=== PATIENT | female | born 1990 | race Native Hawaiian/Other Pacific Islander ===

== ENCOUNTER 2023-05-15 14:00 | Outpatient (CLI) | payer MEDICAID, SELFPAY ==
[2023-05-15] VITALS (22 sets, daily range): BP systolic 111–146; BP diastolic 64–96; PULSE 73–102; O2SAT 97–100
[2023-05-15 14:46] LABS: Hematocrit 31.8 % (33.0-51.0); Hemoglobin* 10.1 gm/dL (12.0-16.0); Mean Corpuscular HGB Conc 32 gm/dL (32-36); Mean Corpuscular Hemoglobin 26 pg (26-34); Mean Corpuscular Volume 81 fL (80-100); Platelet Count* 186 K/uL (140-440); Red Blood Count 3.95 m/uL (4.00-5.20); White Blood Count* 6.28 K/uL (4.50-11.00)
[2023-05-15 14:51] LABS: Slide Review Reflex No
[2023-05-15 15:03] LABS: Alanine Aminotransferase* 15 U/L (4-35); Aspartate Amino Transferase* 25 U/L (12-35); Blood Urea Nitrogen* 11 mg/dL (5-24); Creatinine* 0.6 mg/dL (0.5-1.5); Estimated Glomerular Filt Rate 122 ml/min
[2023-05-15 16:00] LABS: Total Protein Urine 11 mg/dL
[2023-05-15 16:01] LABS: Creatinine Urine 122.3 mg/dL
--- NOTE | 2023-05-15 16:50 | PC.OBNST ---
NST Note NST Note Start: 05/15/23 14:16 Freq: ONCE Status: Active Protocol: Document 05/15/23 16:47 [facility] (Rec: 05/15/23 16:49 [facility] [id number]) NST Note 3 Para (# of births) 2 EDC 05/26/23 Gestational Age In Weeks & Days 38 Weeks & 3 Days High Risk Factors Diabetes - Gestational Diet Controlled,History of Labor/Delivery Patient Presented with Complaint(s) of Other Other Complaints Sent from clinic to monitor blood pressure and obtain labs to rule out pre eclampsia Reactive Yes Appropriate for Gestational Age Yes NIA Real RN Date 05/15/23 Reactive Yes Appropriate for Gestational Age Yes NIA Abdi RN Date 05/15/23 OB NST charge Yes Complete NST Note via Write Note Yes The provider's electronic signature indicates the NST is reactive/appropriate for gestational age. *Note to provider: If an addendum is required, open the patient's chart and click on the note under the Nurse/Allied Health tab.
== END 2023-05-15 16:51 | disposition home or self-care (01) ==
LOC: OB OUT 14:12 → OB 14:13
PROVIDERS: PCP Family Medicine; Visit Provider Family Medicine
DX: O24.419 Gestational diabetes mellitus in pregnancy, unspecified control (principal); Z3A.38 38 weeks gestation of pregnancy
CPT/HCPCS: 36415; 59025; 82565; 82570; 84156; 84450; 84460; 84520; 85027; 99213

== ENCOUNTER 2023-05-23 16:13 | Inpatient (IN) | payer MEDICAID, SELFPAY ==
[2023-05-23] VITALS (13 sets, daily range): BP systolic 105–152; BP diastolic 57–83; PULSE 93–132; RESP 17–18; TEMP 36.6–37.1; O2SAT 99–100; BMI 41.9
[2023-05-23] MEDS: ACETAMINOPHEN 500 MG TABLET 1000 MG PO (17:40)
[2023-05-23 17:48] LABS: PCR FLU A Negative PCR FLU A (Negative); PCR FLU B Negative PCR FLU B (Negative); PCR RSV Negative PCR RSV (Negative); SARS PCR* POSITIVE SARS-CoV-2 (Negative)
[2023-05-23 18:42] LABS: Amnisure Rom* Negative
--- NOTE | 2023-05-23 18:42 | P.OBHP_ITS ---
OB - H&P: HPI Labor/Induction History of Present Illness Date Seen: 05/23/23 Chief Complaint: The patient is a 33 year old 3 para 0202 at 39+4 weeks gestation by 1st trimester US, who presents for IOL for gestational diabetes. Chief complaint: Maternity : 2 Para: 2 Indications for induction: other (gestational diabetes) Narrative: Gene Cox is a 33 year old at 39+4 weeks by 1st trimester US presenting for IOL for diet controlled GDM. Patient unfortunately developed URI symptoms yesterday after a where many people have now tested positive for covid. [place] screening for covid on admit is also positive. She is feeling congested, mild headache and body aches with occasional cough. she is feeling occasional contractions. No leaking fluid. baby has been active. is notable for +GBS. Due to social stressors, she had a late diagnosis of GDM and was unable to attend GDM education. She has been checking home glucose levels which have been well managed with diet alone. She has had reassuring weekly BPPs and last EFW at 35 weeks was 2593g. Her prior 2 pregnancies were complicated by preeclampsia. She has intermittently had high BP readings in clinic, but labs reassuring and has been on 81 mg asa throughout her . History of Present Dating criteria: based on 1st trimester US only care: limited care (missed 2 months of care due to moving out of the area) Ultrasounds: normal 1st trimester US and normal mid trimester US complications: gestational diabetes (diet controlled) Medical complications: none Labs Blood type: A (+) positive Rubella: immune RPR/VDLR: nonreactive GBS status: positive HBsAG: negative Review of Systems Status of ROS: Reports: 6 or more systems reviewed and unremarkable except as noted in History and below Meds Home Medications and Allergies Allergies Allergy/AdvReac Type Severity Reaction Status Date / Time No Known Drug Allergies Allergy Verified 05/15/23 14:32 OB - H&P: Exam Physical Exam: Vital signs: Temp Pulse Resp BP Pulse Ox 98.4 F 121 H 17 139/77 99 05/23/23 16:52 05/23/23 16:52 05/23/23 16:52 05/23/23 16:52 05/23/23 18:22 Constitutional: Constitutional: no acute distress Routine HEENT Exam: Head: Present atraumatic and normocephalic Eye: Present EOMI and PERRL ENT: Present mucous membranes moist Comments: sinus congestion Routine Neck Exam: Neck: Present full ROM Routine Respiratory Exam: Respiratory: Present CTA bilaterally Routine Cardiovascular Exam: Cardiovascular: tachycardia (regular rhythm ) Routine Exam: Perineum Description: Normal Detailed Labor and Delivery Exam: Patient Gravid: Yes Dilation (cm): 3 Effacement (%): 40 Cervix position: posterior Consistency: soft Cervical ripeness score: 5 Fetus (Single): Station: -4 Amniotic Membrane Status: intact Heart Rate Baseline: 150 Monitor Accelerations: Present Monitor Decelerations: None Employee Operations Examiner Variability: Moderate (6-25) Routine Skin Exam: Present intact and normal turgor Routine Neurological Exam: Present alert, oriented X3 and CN II-XII intact OB - Problem Based A/P Additional Plan (1) Term : Status: Acute (2) Group B Streptococcus carrier state affecting : Status: Acute (3) Gestational diabetes: Status: Acute (4) COVID-19 virus infection: Status: Acute Plan Ampicillin once in active labor. Covid 19 precautions GDM management per protocol. Delivery/Labor/Induction Plan Plan: induction Induction method: per pitocin protocol
[2023-05-23 19:37] LABS: Hematocrit 30.5 % (33.0-51.0); Hemoglobin* 9.8 gm/dL (12.0-16.0); Mean Corpuscular HGB Conc 32 gm/dL (32-36); Mean Corpuscular Hemoglobin 25 pg (26-34); Mean Corpuscular Volume 78 fL (80-100); Platelet Count* 162 K/uL (140-440); RDW Coefficient of Variation % 15.3 % (11.5-15.5); Red Blood Count 3.89 m/uL (4.00-5.20); White Blood Count* 6.52 K/uL (4.50-11.00)
[2023-05-23 19:38] LABS: Slide Review Reflex No
[2023-05-23] MEDS: AMPICILLIN 2 GM in 0.9 % SODIUM CHLORIDE Mini-bag 100 ML IVPB (19:53)
[2023-05-23] MEDS: LACTATED RINGERS 1000 ML 1,000 ML 124 ML IV (19:54)
[2023-05-23] MEDS: OXYTOCIN 30 unit/500 ML in NS 30 UNIT/500 ML BAG IVPB (19:54)
[2023-05-23] MEDS: AMPICILLIN 1 GM in 0.9 % SODIUM CHLORIDE Mini-bag 100 ML IVPB (23:51)
[2023-05-24] VITALS (125 sets, daily range): BP systolic 68–179; BP diastolic 32–102; PULSE 82–129; RESP 14–18; TEMP 36.4–37.8; O2SAT 84–99
[2023-05-24] MEDS: LABETALOL HCL 5 MG/ML inj IVP (02:13)
[2023-05-24] MEDS: MAGNESIUM IV 4 GM/100 ML PIGGYBACK IVPB (02:29)
--- NOTE | 2023-05-24 02:54 | PM.OBPNL ---
Subjective Date Seen: 05/24/23 Narrative: Patient has developed severe range blood pressures, IV labetalol and loading dose magnesium started. She is on pitocin per protocol, and is feeling some contractions. Cervical exam done by RN due to feeling rectal pressure, she is 4 cm with bulging bag, but no presenting part felt. Bedside US confirms vertex presentation. Objective Vital Signs: Last Vital Signs Temp 98.2 F 05/24/23 01:56 Pulse 101 H 05/24/23 02:50 Resp 18 05/24/23 01:56 BP 154/88 H 05/24/23 02:50 Pulse Ox 99 05/23/23 18:22 Pelvic Exam Dilation (cm): 4 Effacement (%): 50 Station: -4 Contractions Monitor mode: External Contraction pattern: Regular Contraction intensity: Moderate Pitocin Rate (mU/min): 10 Assessment Assessment: induction ongoing Station: -4 Status: Category l Heart Rate Baseline: 150 Hearing Therapy Teacher Variability: Moderate (6-25) Monitor Accelerations: Present Monitor Decelerations: None Plan Plan: Continue pitocin per protocol. Ampicillin for +GBS Blood sugar monitoring per protocol. Magnesium for severe range BPs, labs pending and Labetalol to maintain normal BPs.
[2023-05-24] MEDS: AMPICILLIN 1 GM in 0.9 % SODIUM CHLORIDE Mini-bag 100 ML IVPB ×4 (03:45→16:09)
[2023-05-24 04:06] LABS: Creatinine Urine 53.1 mg/dL
[2023-05-24 04:07] LABS: Total Protein Urine 18 mg/dL
[2023-05-24 04:09] LABS: Hematocrit 33.4 % (33.0-51.0); Hemoglobin* 10.5 gm/dL (12.0-16.0); Mean Corpuscular HGB Conc 31 gm/dL (32-36); Mean Corpuscular Hemoglobin 25 pg (26-34); Mean Corpuscular Volume 81 fL (80-100); Platelet Count* 195 K/uL (140-440); Red Blood Count 4.14 m/uL (4.00-5.20)
[2023-05-24 04:21] LABS: Slide Review Reflex No
[2023-05-24 04:33] LABS: Alanine Aminotransferase* 15 U/L (4-35); Aspartate Amino Transferase* 31 U/L (12-35); Blood Urea Nitrogen* 8 mg/dL (5-24); Creatinine* 0.6 mg/dL (0.5-1.5); Est. Creatinine Clearance* 96.69; Estimated Glomerular Filt Rate 122 ml/min
[2023-05-24] MEDS: ACETAMINOPHEN 500 MG TABLET 1000 MG PO ×2 (05:39→17:26)
--- NOTE | 2023-05-24 05:42 | PM.OBPNL ---
Subjective Date Seen: 05/24/23 Narrative: Austen is a at 39+5 here for IOL for diet controlled GDM. She unfortunately has developed preeclampsia with severe range blood pressures. These are well managed with labetalol. She is on magnesium. She also has covid. the congestion and body aches are more uncomfortable than contractions. Discussed AROM as a way to augment labor, AROM completed with return of clear fluid. Objective Vital Signs: Last Vital Signs Temp 100.0 F H 05/24/23 05:39 Pulse 112 H 05/24/23 05:01 Resp 18 05/24/23 05:39 BP 124/73 05/24/23 05:01 Pulse Ox 99 05/23/23 18:22 Pelvic Exam Dilation (cm): 5 Effacement (%): 70 Station: -3 Contractions Monitor mode: External Contraction Frequency: 4-5 Contraction pattern: Regular Contraction intensity: Moderate Pitocin Rate (mU/min): 14 Assessment Assessment: induction ongoing Station: -3 Amniotic Membrane Status: AROM Status: Category l Heart Rate Baseline: 150 Wool Hat Finisher Variability: Moderate (6-25) Monitor Accelerations: Present Monitor Decelerations: None Plan Plan: Continue pitocin, now with AROM for augmentation. Continue blood sugar monitoring per protocol. Magnesium for preeclampsia with severe features. Serial labs. Labetalol prn for BP management. Ampicillin for +GBS. Epidural per patient request. Anticipate .
[2023-05-24] MEDS: LACTATED RINGERS 1000 ML 1,000 ML 500 ML IV (07:08)
[2023-05-24] MEDS: LIDOCAINE 2% (PF) 5 ML VIAL EPIDURAL (07:28)
[2023-05-24] MEDS: ROPIVACAINE 0.2% 100 ml 100 ML 10 MG EPIDURAL ×2 (07:38→14:24)
--- NOTE | 2023-05-24 07:41 | PM.ANBPRC ---
[facility] Medical History (Updated 05/24/23 @ 05:48 by Debora Buckley MD) Preeclampsia ?O14.90 - Unspecified pre-eclampsia, unspecified trimester (ICD-10) Nephrolithiasis ?N20.0 - Calculus of kidney (ICD-10) Surgical History (Updated 05/23/23 @ 19:02 by Debora Buckley MD) S/P ureteral stent placement ?Z96.0 - Presence of urogenital implants (ICD-10) Family History (Updated 05/23/23 @ 19:02 by Debora Buckley MD) Maternal Grandmother Diabetes Social History What is your current living situation?: I presently have a place to live Problems where you live: no known problems In the past 12 months, utilities in danger of being shut off: no In past 12 months, lack of transportation kept you from medical appts, meetings, work, or getting things needed for daily living: no In the past 12 mos, have been you worried that your food would run out before you had money to buy more?: never true In the past 12 mos, the food you bought just didn't last and you didn't have money to buy more?: never true Smoking Status: Never smoker How often does anyone, including family, friends and others, physically hurt you: never How often does anyone, including family, friends and others, insult or talk down to you: never How often does anyone, including family, friends and others, threaten you with harm: never How often does anyone, including family, friends and others, scream or curse at you: never Meds Home Medications and Allergies Allergies Allergy/AdvReac Type Severity Reaction Status Date / Time No Known Drug Allergies Allergy Verified 05/23/23 22:18 Results Labs Labs: Laboratory Results - last 24 hr 05/23/23 05/23/23 05/23/23 16:53 18:27 19:30 WBC 6.52 RBC 3.89 L Hgb 9.8 L Hct 30.5 L MCV 78 L MCH 25 L MCHC 32 RDW Coeff of Uriah 15.3 Plt Count 162 Neut % (Auto) Not Reportable Lymph % (Auto) Not Reportable [facility] % (Auto) Not Reportable Eos % (Auto) Not Reportable Baso % (Auto) Not Reportable Neut # (Auto) Not Reportable Lymph # (Auto) Not Reportable [facility] # (Auto) Not Reportable Eos # (Auto) Not Reportable Baso # (Auto) Not Reportable BUN Creatinine Estimated Creat Clear Estimated GFR AST ALT Urine Creatinine Protein/Creatinin Ratio Urine Total Protein Membrane Rupture Negative SARS-CoV-2 (PCR) POSITIVE SARS-CoV-2 A Influenza Type A (PCR) Negative PCR FLU A Influenza Type B (PCR) Negative PCR FLU B RSV (PCR) Negative PCR RSV Blood Type A Positive Antibody Screen NEGATIVE 05/24/23 03:00 WBC 6.70 RBC 4.14 Hgb 10.5 L Hct 33.4 MCV 81 MCH 25 L MCHC 31 L RDW Coeff of Uriah Plt Count 195 Neut % (Auto) Lymph % (Auto) [facility] % (Auto) Eos % (Auto) Baso % (Auto) Neut # (Auto) Lymph # (Auto) [facility] # (Auto) Eos # (Auto) Baso # (Auto) BUN 8 Creatinine 0.6 Estimated Creat Clear 96.69 Estimated GFR 122 AST 31 ALT 15 Urine Creatinine 53.1 Protein/Creatinin Ratio 0.30 H Urine Total Protein 18 Membrane Rupture SARS-CoV-2 (PCR) Influenza Type A (PCR) Influenza Type B (PCR) RSV (PCR) Blood Type Antibody Screen Vital Signs Vital Signs: Last Vital Signs Temp 99.1 F 05/24/23 06:00 Pulse 107 H 05/24/23 07:40 Resp 18 05/24/23 06:00 BP 110/57 L 05/24/23 07:40 Pulse Ox 98 05/24/23 07:40 Weight: 97.324 kg Height: 152.4 cm Anesthesia Procedures Epidural Insertion Patient Location: OB Start Time: 07:00 Stop Time: 07:45 Start Date: 05/24/23 Stop Date: 05/24/23 Reason for Block: primary anesthetic Patient Position: sitting Performed By: Helio Alcala Preanesthetic Checklist: IV checked, risks and benefits discussed, surgical consent, monitors and equipment checked, pre-op evaluation, timeout performed and anesthesia consent Prep: chlorhexidine gluconate Monitoring: blood pressure monitoring, correction officer head, continuous pulse oximetry and heart rate Approach: midline Vertebral Space: lumbar (1-5) Needle Type: Tuohy needle Injection Technique: continuous catheter (catheter) Needle gauge: 17 Needle Length (cm): 10 cm Needle Insertion Depth (cm): 5 Catheter Gauge: 19 Catheter Type: multi-orifice Catheter at skin depth (cm): 10 Test Dose Result: negative and lidocaine 1.5% with epinephrine 1 to 200,000
[2023-05-24] MEDS: PHENYLEPHRINE 100 MCG/ML SYRINGE IVP ×6 (07:59→09:03)
[2023-05-24] MEDS: ePHEDrine sulfate 5 MG/ML inj 10 MG IVP (08:31)
[2023-05-24 08:46] LABS: Hematocrit 30.7 % (33.0-51.0); Hemoglobin* 9.4 gm/dL (12.0-16.0); Mean Corpuscular HGB Conc 31 gm/dL (32-36); Mean Corpuscular Hemoglobin 25 pg (26-34); Mean Corpuscular Volume 81 fL (80-100); Platelet Count* 182 K/uL (140-440); Red Blood Count 3.77 m/uL (4.00-5.20); White Blood Count* 6.35 K/uL (4.50-11.00)
[2023-05-24 08:52] LABS: Slide Review Reflex No
[2023-05-24 08:56] LABS: Alanine Aminotransferase* 15 U/L (4-35); Aspartate Amino Transferase* 28 U/L (12-35); Blood Urea Nitrogen* 8 mg/dL (5-24); Creatinine* 0.7 mg/dL (0.5-1.5); Est. Creatinine Clearance* 82.88; Estimated Glomerular Filt Rate 118 ml/min
[2023-05-24] MEDS: 5 % DEXTROSE/0.9% SOD CHLORIDE 1,000 ML 125 ML IV (13:07)
[2023-05-24] MEDS: ONDANSETRON 2 MG/ML inj 4 MG IV (14:18)
--- NOTE | 2023-05-24 14:53 | P.OBPN_ITS ---
Subjective Date Seen: 05/24/23 Narrative: Austen is a 33 yo at 39+5 here for IOl for gestational diabetes, now with severe preeclampsia, on magnesium. She has been making slow cervical change throughout the day. She is intermittently feeling contractions and is feeling vaginal/perineal pain with cervical checks and can feel the catheter. Objective Vital Signs: Last Vital Signs Temp 97.8 F 05/24/23 14:28 Pulse 95 05/24/23 14:26 Resp 16 05/24/23 14:28 BP 111/55 L 05/24/23 14:26 Pulse Ox 98 05/24/23 08:05 Pelvic Exam Dilation (cm): 8 Effacement (%): 90 Station: -2 Contractions Monitor mode: External Contraction pattern: Regular Contraction intensity: Moderate Pitocin Rate (mU/min): 23 Assessment Assessment: active labor and induction ongoing Station: -3 Amniotic Membrane Status: AROM Status: Category ll Heart Rate Baseline: 150 Retirement Variability: Moderate (6-25) Monitor Accelerations: Present Monitor Decelerations: Variable Plan Plan: Continue glucose management per protocol. On Magnesium for severe preeclampsia. BP management with labetalol, although has not needed treatment since epidural. Serial labs per protocol. Ampicillin for +GBS Contact precautions for covid.
[2023-05-24 15:00] LABS: Hematocrit 30.5 % (33.0-51.0); Hemoglobin* 9.5 gm/dL (12.0-16.0); Mean Corpuscular HGB Conc 31 gm/dL (32-36); Mean Corpuscular Hemoglobin 25 pg (26-34); Mean Corpuscular Volume 82 fL (80-100); Platelet Count* 181 K/uL (140-440); Red Blood Count 3.74 m/uL (4.00-5.20); White Blood Count* 6.66 K/uL (4.50-11.00)
[2023-05-24 15:11] LABS: Alanine Aminotransferase* 16 U/L (4-35); Aspartate Amino Transferase* 28 U/L (12-35); Blood Urea Nitrogen* 8 mg/dL (5-24); Creatinine* 0.7 mg/dL (0.5-1.5); Est. Creatinine Clearance* 82.88; Estimated Glomerular Filt Rate 118 ml/min
[2023-05-24 15:25] LABS: Slide Review Reflex No
[2023-05-24] MEDS: TRANEXAMIC ACID 100 MG/ML INJ 1000 MG IV (17:44)
--- NOTE | 2023-05-24 18:09 | W.PM.VAGD1_ITS ---
Procedure Delivery date: 05/24/23 Procedure Done: Global Events: GDMA1, Pre-Eclampsia, Meconium Stained Fluid and Covid Infection in Intrapartal Events: Labor Induction Delivery augmentation: rupture of membranes Delivery monitor: external FHT Route of delivery: Episiotomy description: None Laceration description: None Estimated blood loss (mL): 50 Anesthesia type: Epidural Disposition: floor Narrative: The patient is a 33 year-old G [id number] admitted on 05/23/2023 at 39 Weeks, 4 Days gestation for IOL for diet controlled GDM. She unfortunately tested positive for covid at the time of admission with symptoms starting 05/22..? Cervical exam on admission was 4 cm/40 % effaced/-4 station with membranes intact in vertex presentation.? Contractions were occasional.? heart rate demonstrated baseline 150 bpm with moderate variability, + accelerations, - decelerations; a category 1 tracing.? AROM occurred at 05/24/2023 0534 with clear fluid. however, with subsequent checks, fluid was noted to be meconium stained. Additionally, mom developed preeclampsia with severe range blood pressures and was started on magnesium ? Labor Analgesia:? Epidural ? Pitocin:? yes ? Labor onset:? 05/24/23 0530 ? Complete:? 1609 ? Pushing:? 1621 ? heart tones during second stage were category 2. ? At 1740 a viable male infant delivered in vertex OA presentation over intact perineum via spontaneous vaginal delivery.?Infant had a nuchal cord, reduced at perineum. This was followed by a 20 second shoulder dystochia. was placed on maternal abdomen.? Cord was clamped and cut after a 10-15 second delay.? Nose and mouth were bulb suctioned.? Infant weight 8 lbs 13 oz.? 2 at 1 minute and 7 at 5 minutes and 8 at 10 minutes.? Shoulder dystocia: yes.? Nuchal cord: yes x1. ? Placenta delivered spontaneously and complete at 1745 with a 3 vessel cord. ? Mother and were stable after delivery. ? Lacerations:? none. ? Blood loss: 50 mL. Blood loss measurement type: QBL ? Sponge and needles counts are correct. [place] Infant Gender: Male presentation: vertex Placental Delivery Description: Spontaneous Cord Description: 3 Vessels, Nuchal Cord and Loose
[2023-05-24] MEDS: IBUPROFEN 600 MG TABLET PO (19:20)
[2023-05-24 20:43] LABS: Hematocrit 31.9 % (33.0-51.0); Hemoglobin* 10.1 gm/dL (12.0-16.0); Mean Corpuscular HGB Conc 32 gm/dL (32-36); Mean Corpuscular Hemoglobin 25 pg (26-34); Mean Corpuscular Volume 80 fL (80-100); Platelet Count* 201 K/uL (140-440); Red Blood Count 3.97 m/uL (4.00-5.20); White Blood Count* 10.39 K/uL (4.50-11.00)
[2023-05-24 20:52] LABS: Slide Review Reflex No
[2023-05-24 21:00] LABS: Alanine Aminotransferase* 17 U/L (4-35); Aspartate Amino Transferase* 31 U/L (12-35); Blood Urea Nitrogen* 9 mg/dL (5-24); Creatinine* 0.8 mg/dL (0.5-1.5); Est. Creatinine Clearance* 72.52; Estimated Glomerular Filt Rate 100 ml/min
[2023-05-25] VITALS (7 sets, daily range): BP systolic 97–151; BP diastolic 65–98; PULSE 81–91; RESP 14–16; TEMP 36.3–36.5; O2SAT 96–100
[2023-05-25 00:43] LABS: Magnesium* 6.2 mg/dL (1.5-2.6)
[2023-05-25] MEDS: IBUPROFEN 600 MG TABLET PO ×4 (00:47→23:58)
[2023-05-25 02:51] LABS: Hematocrit 28.3 % (33.0-51.0); Mean Corpuscular HGB Conc 32 gm/dL (32-36); Mean Corpuscular Hemoglobin 26 pg (26-34); Mean Corpuscular Volume 81 fL (80-100); Platelet Count* 161 K/uL (140-440); Red Blood Count 3.51 m/uL (4.00-5.20); White Blood Count* 7.97 K/uL (4.50-11.00)
[2023-05-25] MEDS: ACETAMINOPHEN 500 MG TABLET 1000 MG PO ×3 (03:24→19:39)
[2023-05-25 03:28] LABS: Alanine Aminotransferase* 16 U/L (4-35); Aspartate Amino Transferase* 33 U/L (12-35); Blood Urea Nitrogen* 8 mg/dL (5-24); Creatinine* 0.7 mg/dL (0.5-1.5); Est. Creatinine Clearance* 82.88; Estimated Glomerular Filt Rate 118 ml/min
[2023-05-25 04:07] LABS: Slide Review Reflex No
[2023-05-25 07:13] LABS: Hemoglobin* 8.3 gm/dL (12.0-16.0)
--- NOTE | 2023-05-25 07:59 | PM.OBPNVD1 ---
OB - PN:Subj Subjective Time Seen by Provider: 07:59 Date Seen: 05/25/23 Patient comments OB post-: other (cramping pain, has lots of nasal congestion but body aches from covid are better. Bleeding appropriate. ) [place] infant status: bottle feeding status: exclusively bottle feeding OB - PN: Obj Exam Physical Exam: Vital signs: Temp Pulse Resp BP Pulse Ox O2 Del Method 97.5 F L 88 16 119/78 100 Room Air 05/25/23 07:49 05/25/23 07:49 05/25/23 07:49 05/25/23 07:49 05/25/23 07:49 05/25/23 07:49 Constitutional: Constitutional: no acute distress Comments: Sleeping, startles awake. Routine HEENT Exam: Head: Present atraumatic and normal inspection ENT: Present mucous membranes moist Routine Respiratory Exam: Respiratory: Present CTA bilaterally (slightly diminished) Routine Cardiovascular Exam: Cardiovascular: Present RRR, S1 and S2; Absent murmur Routine Abdominal Exam: Abdominal: Present soft Fundus: Present firm (nontender) Routine Extremities Exam: Extremities: Absent calf tenderness Routine Neurological Exam: Neurological: Present alert and oriented X3 Routine Psychiatric Exam: Psychiatric: Present normal affect OB - PN: Obj Data Labs Labs: Laboratory Results - last 24 hr 05/24/23 05/24/23 05/24/23 08:25 14:46 20:33 WBC 6.35 6.66 10.39 RBC 3.77 L 3.74 L 3.97 L Hgb 9.4 L 9.5 L 10.1 L Hct 30.7 L 30.5 L 31.9 L MCV 81 82 80 MCH 25 L 25 L 25 L MCHC 31 L 31 L 32 Plt Count 182 181 201 BUN 8 8 9 Creatinine 0.7 0.7 0.8 Estimated Creat Clear 82.88 82.88 72.52 Estimated GFR 118 118 100 Magnesium AST 28 28 31 ALT 15 16 17 05/25/23 05/25/23 05/25/23 00:04 02:46 06:47 WBC 7.97 RBC 3.51 L Hgb 9.0 L 8.3 L Hct 28.3 L MCV 81 MCH 26 MCHC 32 Plt Count 161 BUN 8 Creatinine 0.7 Estimated Creat Clear 82.88 Estimated GFR 118 Magnesium 6.2 H* 6.0 H* AST 33 ALT 16 OB - PN: A/P Delivery Assessment and Plan (1) Term : Status: Inactive (2) Group B Streptococcus carrier state affecting : Status: Acute (3) Gestational diabetes: Problem details: Diet controlled. Status: Inactive Assessment and Plan: - bg was 99 this morning. Continue to monitor. (4) COVID-19 virus infection: Problem details: COVID positive upon admission Status: Acute Assessment and Plan: - Day #4 today of symptoms - Declines paxlovid - Encouraged masking around baby to decrease transmission. - overall feels symptoms are improving. (5) (normal spontaneous vaginal delivery): Status: Acute Assessment and Plan: - pain controlled with current meds. (6) Preeclampsia, severe: Problem details: on magnesium Status: Acute Assessment and Plan: - magnesium for 24 hours after delivery - Will start PO labetalol. (7) Anemia: Problem details: Hemoglobin 8.3 05/25 Status: Acute Assessment and Plan: - start PO iron Plan day: 1 Plan: routine care
[2023-05-25] MEDS: DOCUSATE SODIUM 100 MG CAPSULE PO (08:59)
[2023-05-25] MEDS: LABETALOL HCL 100 MG TABLET PO ×2 (08:59→20:37)
[2023-05-25 10:17] LABS: Magnesium* 5.9 mg/dL (1.5-2.6)
[2023-05-25 13:08] LABS: Basophils Absolute Auto 0.03 K/uL (0.00-0.30); Basophils Percent Auto 0.4 % (0.0-3.0); Eosinophils Absolute Auto 0.09 K/uL (0.00-0.50); Eosinophils Percent Auto 1.2 % (0.0-7.0); Hematocrit 26.9 % (33.0-51.0); Immature Granulocytes Abs Auto 0.03 K/uL (0.00-0.30); Immature Granulocytes Pct Auto 0.4 %; Lymphocytes Percent Auto 14.9 % (20-44); Mean Corpuscular HGB Conc 31 gm/dL (32-36); Mean Corpuscular Hemoglobin 26 pg (26-34); Mean Corpuscular Volume 82 fL (80-100); Monocytes Percent Auto 8.7 % (0.0-11.0); Neutrophils Percent Auto 74.4 % (42.0-72.0); RDW Coefficient of Variation % 15.7 % (11.5-15.5); White Blood Count* 7.63 K/uL (4.50-11.00)
[2023-05-25 13:12] LABS: Slide Review Reflex Yes
[2023-05-25 13:13] LABS: Alanine Aminotransferase* 17 U/L (4-35); Aspartate Amino Transferase* 36 U/L (12-35); Blood Urea Nitrogen* 8 mg/dL (5-24); Creatinine* 0.7 mg/dL (0.5-1.5); Est. Creatinine Clearance* 82.88; Estimated Glomerular Filt Rate 118 ml/min
[2023-05-25 13:26] LABS: Platelet Count* 156 K/uL (140-440); Slide Review Acceptable Review (Acceptable)
[2023-05-25 15:42] LABS: Hematocrit 26.3 % (33.0-51.0); Hemoglobin* 8.3 gm/dL (12.0-16.0); Mean Corpuscular HGB Conc 32 gm/dL (32-36); Mean Corpuscular Hemoglobin 26 pg (26-34); Mean Corpuscular Volume 82 fL (80-100); Platelet Count* 158 K/uL (140-440); Red Blood Count 3.21 m/uL (4.00-5.20); White Blood Count* 6.97 K/uL (4.50-11.00)
[2023-05-25 15:43] LABS: Slide Review Reflex No
[2023-05-25 16:03] LABS: Alanine Aminotransferase* 16 U/L (4-35); Aspartate Amino Transferase* 33 U/L (12-35); Blood Urea Nitrogen* 10 mg/dL (5-24); Creatinine* 0.7 mg/dL (0.5-1.5); Est. Creatinine Clearance* 82.88; Estimated Glomerular Filt Rate 118 ml/min
[2023-05-25] MEDS: SODIUM CHLORIDE 0.9 % (FLUSH) 10 ML SYRINGE IVF (17:47)
[2023-05-26 03:27] VITALS: BP 127/85; PULSE 68; RESP 18; TEMP 36.8; O2SAT 98
[2023-05-26] MEDS: ACETAMINOPHEN 500 MG TABLET 1000 MG PO ×2 (03:29→09:06)
[2023-05-26 06:45] LABS: Hematocrit 26.8 % (33.0-51.0); Hemoglobin* 8.3 gm/dL (12.0-16.0); Mean Corpuscular HGB Conc 31 gm/dL (32-36); Mean Corpuscular Hemoglobin 26 pg (26-34); Mean Corpuscular Volume 82 fL (80-100); Platelet Count* 169 K/uL (140-440); Red Blood Count 3.26 m/uL (4.00-5.20); White Blood Count* 7.85 K/uL (4.50-11.00)
[2023-05-26 06:49] LABS: Slide Review Reflex No
[2023-05-26 06:58] LABS: Alanine Aminotransferase* 15 U/L (4-35); Aspartate Amino Transferase* 32 U/L (12-35); Blood Urea Nitrogen* 12 mg/dL (5-24); Creatinine* 0.7 mg/dL (0.5-1.5); Est. Creatinine Clearance* 82.88; Estimated Glomerular Filt Rate 118 ml/min
[2023-05-26] MEDS: IBUPROFEN 600 MG TABLET PO (07:02)
[2023-05-26 08:09] VITALS: BP 113/69; BP 129/74; PULSE 79; RESP 16; TEMP 36.8; O2SAT 99
[2023-05-26] MEDS: LABETALOL HCL 100 MG TABLET PO (09:05)
[2023-05-26] MEDS: FERROUS SULFATE 325 MG TABLET PO (09:05)
[2023-05-26] MEDS: DOCUSATE SODIUM 100 MG CAPSULE PO (09:06)
--- NOTE | 2023-05-26 11:05 | P.DS_ITS ---
DS: Providers Provider Date Seen: 05/26/23 Date of admission: 05/23/23 16:13 Primary care physician: Gilda Delgadillo DO Admitting Clinician: Debora Buckley MD Attending Physician on discharge: Benito Gunn MD Date of Discharge: 05/26/23 DS: Diagnosis Discharge Diagnosis (1) (normal spontaneous vaginal delivery): Status: Acute Problem details: Vaginal delivery on 05/24 after induction for diet controlled GDM. Uncomplicated delivery. (2) Preeclampsia, severe: Status: Acute Problem details: Magnesium and labetalol started in labor. Magnesium continued for 24 hours after delivery. Started on oral labetalol on PPD #1. Tolerating fine. BPs have been in range with 100 mg bid. (3) COVID-19 virus infection: Status: Acute Problem details: COVID positive upon admission. Mild symptoms, improving. Declined paxlovid. Exam Const: Vital Signs, click to edit/add: Vital Signs - 24 hr 05/25/23 12:01 05/25/23 15:39 05/25/23 19:30 Temperature 97.5 F L 97.5 F L 97.4 F L Pulse Rate [Pulse Oximeter] 83 91 81 Respiratory Rate 16 16 14 Blood Pressure [Le ft Arm] 119/72 143/85 H Blood Pressure [Ri ght Arm] 113/69 Pulse Oximetry 97 97 96 Oxygen Delivery Me thod Room Air Room Air Room Air 05/25/23 23:56 05/26/23 03:27 05/26/23 08:09 Temperature 97.7 F 98.2 F 98.2 F Pulse Rate [Pulse Oximeter] 81 68 79 Respiratory Rate 16 18 16 Blood Pressure [Le ft Arm] 97/65 127/85 129/74 Blood Pressure [Ri ght Arm] 113/69 Pulse Oximetry 99 98 99 Oxygen Delivery Me thod Room Air Room Air Room Air Documenting provider has reviewed patient's vital signs: yes Common normals: no apparent distress Neck & C-Spine: Common normals: full ROM Lymph: Lymphatic: no lymphadenopathy noted Resp: Common normals: normal respiratory effort, no retractions and clear to auscultation bilaterally Auscultation: clear to auscultation bilaterally Cardio: Common normals: regular rate and regular rhythm; murmurs detected Rate: regular rate Rhythm: regular rhythm GI: Common normals: Normal to inspection, nondistended, normoactive bowel sounds present, soft to palpation and non-tender Palpation: soft : Uterus: U/2 Lochia: small Uterus palpation: uterus nontender Extremity: Common normals: normal to inspection, full ROM and no pedal edema Neuro: Common normals: moves all extremities and no sensory deficits noted Skin: Common normals: no rashes or lesions noted General skin exam: no rashes or lesions noted OB - DS: Summary Hospital Course Hospital Course: The patient is a 33 year old G 3 P 2 at 39 weeks gestation that was admitted to the Center on 05/23/23 for induction. She had an uncomplicated vaginal delivery. She delivered a viable male infant. She is bottle feeding. the patient has done well. Peripartum Data Infant delivery method: Vaginal Infant Gender: Male Status at Discharge Functional status at discharge: independent ambulation Time Spent with Patient Time attestation: Total time spent providing and/or coordinating discharge services: Discharge Plan Discharge Disposition: Home, Self-Care Date of Admission: 05/23/23 16:13 Primary Care Provider: Gilda Delgadillo Condition: Stable Anticipated Discharge Date/Time: 05/26/23 11:12 Discharge Medications: New ferrous sulfate 325 mg (65 mg iron) Tablet 325 mg PO DAILYWM Qty: 30 0RF labetalol 100 mg Tablet 100 mg PO BID Qty: 60 0RF labetalol 100 mg tablet 100 mg PO BID Qty: 60 2RF Discharge Orders: Discharge Order (Routine); Ordered 05/26/23 Ordered By: Benito Gunn Consulting provider completed their portion of the discharge: Yes Patient Education: OB High Blood Pressure DC, OB Vaginal/Bottle Feeding Activity Level: No Restrictions Discharge Diet: Regular Follow Up Appointments: Gilda Delgadillo, DO [Primary Care Provider] - Forms: [facility] Info Instructions Discharge Comments: Monitor BP twice daily. If lightheaded or dizzy and BP is less than 110/70, can D/C labetalol. If BP > 140/90, contact PCP to discuss further adjustments.
== END 2023-05-26 12:20 | disposition home or self-care (01) | DRG 805 ==
PROVIDERS: Family Medicine; Admitting Provider Family Medicine; PCP Family Medicine; Visit Provider Family Medicine
DX: O24.420 Gestational diabetes mellitus in childbirth, diet controlled (principal); U07.1 COVID-19; Z37.0 Single live birth; O98.52 Other viral diseases complicating childbirth; O14.14 Severe pre-eclampsia complicating childbirth; O99.824 Streptococcus B carrier state complicating childbirth; O77.0 Labor and delivery complicated by meconium in amniotic fluid; O66.0 Obstructed labor due to shoulder dystocia; O90.81 Anemia of the puerperium; D64.9 Anemia, unspecified; Z3A.39 39 weeks gestation of pregnancy
CPT/HCPCS: 01967; 36415; 76815; 82565; 82570; 82962; 83735; 84112; 84156; 84450; 84460; 84520; 85018; 85025; 85027; 86850; 86900; 86901; 87631; 88307; T1013; A9270; J0290; J2371; J2405; J2795; J3475; J7042; J7120